=== PATIENT | female | born 1945 | race Caucasian/White ===

== ENCOUNTER 2017-03-23 10:00 | Inpatient (IN) | payer MEDICARE ==
[2017-03-23] VITALS (11 sets, daily range): BP systolic 143–222; BP diastolic 64–121; PULSE 69–91; RESP 20–22; TEMP 96.3–98.4; O2SAT 96–100
[~2017-03-23] VITALS: Ht 157.5 cm; Wt 96.9 kg
[2017-03-23 10:38] LABS: AUTOMATED NEUTROPHIL # 9.7 TH/MM3 (1.8-7.7); BASOPHIL # 0.1 TH/MM3 (0-0.2); BASOPHIL % 0.4 % (0.0-2.0); EOSINOPHIL # 0.1 TH/MM3 (0-0.4); EOSINOPHIL % 0.9 % (0.0-4.0); HEMATOCRIT 42.3 % (35.0-46.0); LYMPH % 17.7 % (9.0-44.0); LYMPHOCYTE # 2.2 TH/MM3 (1.0-4.8); MEAN CELL VOLUME 81.5 FL (80.0-100.0); MEAN CORPUSCULAR HEMOGLOBIN 27.1 PG (27.0-34.0); MEAN CORPUSCULAR HGB CONC 33.2 % (32.0-36.0); MONO % 3.6 % (0.0-8.0); NEUT % 77.4 % (16.0-70.0); PLATELET COUNT 322 TH/MM3 (150-450); RED BLOOD COUNT 5.19 MIL/MM3 (4.00-5.30); RED CELL DISTRIBUTION WIDTH 12.4 % (11.6-17.2); WHITE BLOOD COUNT 12.6 TH/MM3 (4.0-11.0)
[2017-03-23] MEDS ORDERED: ASPI81TA11 PO (10:41)
[2017-03-23] MEDS ORDERED: CHOL5000 PO (10:41)
[2017-03-23] MEDS ORDERED: LOSA100T PO (10:41)
[2017-03-23] MEDS ORDERED: MILN50 PO (10:41)
[2017-03-23] MEDS ORDERED: TRAM50TA PO (10:41)
[2017-03-23] MEDS ORDERED: BIOT1CAP2 PO (10:41)
[2017-03-23] MEDS ORDERED: META0.52 PO (10:41)
[2017-03-23] MEDS ORDERED: VENTAER INH (10:41)
[2017-03-23 10:44] LABS: HEMO FLAGS AUTO DIFF
[2017-03-23] MEDS ORDERED: MORPHINE SULFATE 4 MG/ML INJ IV PUSH ONE (10:45)
[2017-03-23] MEDS ORDERED: NITROGLYCERIN-D5W 50 MG/250 ML 250 ML IV ONE (10:45)
[2017-03-23 10:54] LABS: CHLORIDE 101 MEQ/L (98-107); POTASSIUM 3.9 MEQ/L (3.5-5.1); SODIUM (NA) 137 MEQ/L (136-145)
[2017-03-23 10:58] LABS: APTT (PATIENT) 31.8 SEC (24.3-30.1); INTERNATIONAL NORMALIZED RATIO 0.9 RATIO; PROTHROMBIN TIME - PATIENT 10.4 SEC (9.8-11.6)
[2017-03-23 10:59] LABS: ANION GAP 9 MEQ/L (5-15); BICARBONATE 26.7 MEQ/L (21.0-32.0); BLOOD UREA NITROGEN 17 MG/DL (7-18); MAGNESIUM 1.7 MG/DL (1.5-2.5)
[2017-03-23 11:02] LABS: ALT (GPT) 24 U/L (10-53); AST (GOT) 23 U/L (15-37); GLOMERULAR FILTRATION RATE 103 ML/MIN (>89)
[2017-03-23 11:04] LABS: TOTAL BILIRUBIN ADULT 0.4 MG/DL (0.2-1.0)
[2017-03-23 11:05] LABS: ALKALINE PHOSPHATASE 57 U/L (45-117)
[2017-03-23 11:15] LABS: CREATINE KINASE 55 U/L (26-192)
--- NOTE | 2017-03-23 11:19 | RADRPT ---
EXAM DATE/TIME: 03/23/2017 10:49 [facility] COMPARISON: No previous studies available for comparison. INDICATIONS : Chest pain. MEDICAL HISTORY : Hypertension. SURGICAL HISTORY : None. ENCOUNTER: Initial ACUITY: 1 day PAIN SCORE: 5/10 LOCATION: Bilateral chest FINDINGS: A single view of the chest demonstrates the lungs to be symmetrically aerated without evidence of mas s, infiltrate or effusion. The cardiomediastinal contours are unremarkable. Osseous structures are intact. CONCLUSION: 1. No acute cardiopulmonary disease. Trevor Shen MD on March 23, 2017 at 11:13 Board Certified Radiologist. This report was verified electronically.
[2017-03-23 11:26] LABS: PLATELET ESTIMATE SMEAR NORMAL (NORMAL); PLATELET MORPHOLOGY NORMAL (NORMAL); SCAN/DIFF AUTO DIFF CONFIRMED
--- NOTE | 2017-03-23 11:33 | PD ---
HPI Chief Complaint: Chest Pain Time Seen by Provider: 10:04 Travel History International Travel<30 days: No Contact w/Intl Traveler<30days: No Traveled to known affect area: No History of Present Illness HPI 71 yo F c/o chest pain, retrosternal, constant, 5/10, which woke her up at 3: 00am. Nausea reported. No dyspnea. No pleuritic component or radiation. No hx CAD. Pt quite smoking 11 years ago. Pt took baby aspirin within last 7 days. PFSH Past Medical History Hx Anticoagulant Therapy: Yes (baby asa) Atrial Fibrillation: Yes Heart Rhythm Problems: Yes Cardiovascular Problems: Yes (htn; afib) Diminished Hearing: No Fibromyalgia: Yes Hypertension: Yes Respiratory: Yes (asthma like symptoms) Immunizations Current: No Tetanus Vaccination: Unknown Influenza Vaccination: No ?: Not Past Surgical History Section: Yes Hysterectomy: Yes Tonsillectomy: Yes Other Surgery: Yes (skin ca removal) Social History Alcohol Use: Yes (rarely) Tobacco Use: No (former) Substance Use: No Allergies-Medications (Allergen,Severity, Reaction): Coded Allergies: Beta-Adrenergic Agents (Verified Allergy, Severe, 03/23/17) Calcium Channel Blocking Agents-Dih (Verified Allergy, Severe, 03/23/17) Macrolide Antibiotics (Verified Allergy, Severe, 03/23/17) Penicillins (Verified Allergy, Severe, 03/23/17) Sulfa (Sulfonamide Antibiotics) (Verified Allergy, Severe, 03/23/17) Tricyclic Compounds (Verified Allergy, Severe, 03/23/17) bupropion (Verified Allergy, Severe, 03/23/17) clonidine (Verified Allergy, Severe, 03/23/17) doxazosin (Verified Allergy, Severe, 03/23/17) gabapentin (Verified Allergy, Severe, 03/23/17) metoprolol (Verified Allergy, Severe, 03/23/17) pregabalin (Verified Allergy, Severe, 03/23/17) Uncoded Allergies: ketolides (Allergy, Severe, 03/23/17) Reported Meds & Prescriptions Reported Meds & Active Scripts Active Reported Tramadol (Tramadol HCl) 50 Mg Tab 50 Mg PO BID Savella (Milnacipran) 50 Mg Tab 50 Mg PO DAILY Vitamin D3 (Cholecalciferol) 5,000 Unit Cap 5,000 Units PO DAILY Losartan (Losartan Potassium) 100 Mg Tab 100 Mg PO DAILY Biotin 1 Mg Cap 1 Mg PO DAILY Metamucil (Psyllium) 520 Mg Cap 1 Tab PO DAILY Ventolin Hfa 18 GM Inh (Albuterol Sulfate) 90 Mcg/Act Aer 2 Puff INH Q4-6H PRN Aspirin EC (Aspirin) 81 Mg Tabdr 81 Mg PO DAILY Review of Systems Except as stated in HPI: all other systems reviewed are Neg General / Constitutional: No: Fever Cardiovascular: Positive: Chest Pain or Discomfort, No: Palpitations, Diaphoresis Respiratory: No: Shortness of Breath Physical Exam Narrative GENERAL: 71 yo F, NAD, WNWD SKIN: Warm and dry. HEAD: Atraumatic. Normocephalic. EYES: Pupils equal and round. No scleral icterus. No injection or drainage. ENT: No nasal bleeding or discharge. Mucous membranes pink and moist. NECK: Trachea midline. No JVD. CARDIOVASCULAR: Regular rate and rhythm. RESPIRATORY: No accessory muscle use. Clear to auscultation. Breath sounds equal bilaterally. GASTROINTESTINAL: Abdomen soft, non-tender, nondistended. Hepatic and splenic margins not palpable. MUSCULOSKELETAL: Extremities without clubbing, cyanosis, or edema. No obvious deformities. NEUROLOGICAL: Awake and alert. No obvious cranial nerve deficits. Motor grossly within normal limits. Five out of 5 muscle strength in the arms and legs. Normal speech. PSYCHIATRIC: Appropriate mood and affect; insight and judgment normal. Data Data Last Documented VS Vital Signs Date Time Temp Pulse Resp B/P (MAP) Pulse Ox O2 Delivery O2 Flow Rate FiO2 03/23/17 11:54 16 03/23/17 10:57 96 Room Air 03/23/17 10:56 89 03/23/17 10:45 98.3 VS reviewed 221/120 bp on arrival, decreased to 170/90 shortly after ED arrival Orders Orders Electrocardiogram (03/23/17 10:24) Ckmb (Isoenzyme) Profile (03/23/17 10:24) Complete Blood Count With Diff (03/23/17 10:24) Comprehensive Metabolic Panel (03/23/17 10:24) Magnesium (Mg) (03/23/17 10:24) Prothrombin Time / Inr (Pt) (03/23/17 10:24) Act Partial Throm Time (Ptt) (03/23/17 10:24) Troponin I (03/23/17 10:24) Lipase (03/23/17 10:24) Chest, Single Ap (03/23/17 10:24) Ecg Monitoring (03/23/17 10:24) Bilateral Bp Monitoring (03/23/17 10:24) Iv Access Insert/Monitor (03/23/17 10:24) Oximetry (03/23/17 10:24) Oxygen Administration (03/23/17 10:24) Morphine Inj (Morphine Inj) (03/23/17 10:45) Nitroglycerin-D5w 50 Mg/250 Ml (Nitrogly (03/23/17 10:45) Nitroglycerin Sl (Nitrostat Sl) (03/23/17 11:45) Admit Order (Ed Use Only) (03/23/17 11:53) Labs Laboratory Tests Test 03/23/17 10:12 White Blood Count 12.6 TH/MM3 Red Blood Count 5.19 MIL/MM3 Hemoglobin 14.1 GM/DL Hematocrit 42.3 % Mean Corpuscular Volume 81.5 FL Mean Corpuscular Hemoglobin 27.1 PG Mean Corpuscular Hemoglobin Concent 33.2 % Red Cell Distribution Width 12.4 % Platelet Count 322 TH/MM3 Mean Platelet Volume 8.5 FL Neutrophils (%) (Auto) 77.4 % Lymphocytes (%) (Auto) 17.7 % Monocytes (%) (Auto) 3.6 % Eosinophils (%) (Auto) 0.9 % Basophils (%) (Auto) 0.4 % Neutrophils # (Auto) 9.7 TH/MM3 Lymphocytes # (Auto) 2.2 TH/MM3 Monocytes # (Auto) 0.5 TH/MM3 Eosinophils # (Auto) 0.1 TH/MM3 Basophils # (Auto) 0.1 TH/MM3 CBC Comment AUTO DIFF Differential Comment AUTO DIFF CONFIRMED Platelet Estimate NORMAL Platelet Morphology Comment NORMAL Prothrombin Time 10.4 SEC Prothromb Time International Ratio 0.9 RATIO Activated Partial Thromboplast Time 31.8 SEC Blood Urea Nitrogen 17 MG/DL Creatinine 0.58 MG/DL Random Glucose 121 MG/DL Total Protein 8.6 GM/DL Albumin 3.5 GM/DL Calcium Level 10.0 MG/DL Magnesium Level 1.7 MG/DL Alkaline Phosphatase 57 U/L Aspartate Amino Transf (AST/SGOT) 23 U/L Alanine Aminotransferase (ALT/SGPT) 24 U/L Total Bilirubin 0.4 MG/DL Sodium Level 137 MEQ/L Potassium Level 3.9 MEQ/L Chloride Level 101 MEQ/L Carbon Dioxide Level 26.7 MEQ/L Anion Gap 9 MEQ/L Estimat Glomerular Filtration Rate 103 ML/MIN Total Creatine Kinase 55 U/L Troponin I LESS THAN 0.02 NG/ML Lipase 85 U/L MDM Medical Decision Making Medical Screen Exam Complete: Yes Emergency Medical Condition: Yes Differential Diagnosis NSTEMI, unstable angina, coronary vasospasm, PE, PTX, aortic dissection, pericarditis, myocarditis, endocarditis, PNA, esophageal disease, aneurysm, musculoskeletal etiologies, anxiety, cocaine/sympathomimetic abuse Narrative Course CBC & BMP Diagram 03/23/17 10:12 Total Protein 8.6 H, Albumin 3.5, Calcium Level 10.0, Magnesium Level 1.7, Alkaline Phosphatase 57, Aspartate Amino Transf (AST/SGOT) 23, Alanine Aminotransferase (ALT/SGPT) 24, Total Bilirubin 0.4 EKG: rate 90, L axis deviation, no ischemic injury pattern Tn < 0.02 Last 24 hours Impressions Chest X-Ray 03/23/17 1024 Signed Impressions: Service Date/Time: Thursday, March 23, 2017 10:49 - CONCLUSION: 1. No acute cardiopulmonary disease. Trevor Shen MD Pain improved after 0.5 mg SL nitro x 2. BP down toe 154/65 after SL nitro. Admission to center. D/w Dr Cohen for [facility]. Diagnosis Primary Impression: Chest pain Qualified Codes: R07.9 - Chest pain, unspecified Admitting Information Admitting Physician Requests: Observation Carlos Singletary MD Mar 23, 2017 11:32
[2017-03-23] MEDS: NITROGLYCERIN 0.4 MG SL 25 TABS/BTL SL SCH ×3 (11:49→12:14)
[2017-03-23] MEDS ORDERED: NALOXONE HCL 0.4 MG/ML AMP IV PUSH PRN (12:30)
[2017-03-23] MEDS ORDERED: SODIUM CHLORIDE 0.9% FLUSH 10 ML FLUSH IV FLUSH PRN (12:30)
[2017-03-23] MEDS ORDERED: DIATRIZOATE MEGLUM/DIATRIZOATE SOD 9 ML CUP ONE (12:57)
[2017-03-23] MEDS ORDERED: ACETAMINOPHEN 325 MG TAB PO PRN (13:00)
[2017-03-23] MEDS ORDERED: hydrALAZINE HCL 20 MG/ML VIAL IV PUSH ONE (13:00)
[2017-03-23 13:35] LABS: CREATINE KINASE 42 U/L (26-192)
--- NOTE | 2017-03-23 13:38 | HHI.HP ---
[facility] Service [facility] Primary Care Physician Geraldo Ramirez M.D. Admission Diagnosis Chest Pain; HTN Diagnoses: Chief Complaint: epigastric and chest pain Travel History International Travel<30 Days: No Contact w/Intl Traveler <30 Da: No Traveled to Known Affected Are: No History of Present Illness Patient is a very nice 71 female with AFIB (no MEds) and HTN who had acute onset at 4am of epigatric pressure. She ate a large meal ad a local [place] restaurant and finished her leftovers shortly before bed. She then awoke with severe pressure in the chest with associated Belching and flatus. She took a aurea mesfin and it got better but came back. She came to the ER and was found to have a BP of 221/121. HEr pain and BP imprved somewhat after SL nitro and the patient was recommend to the Hospital for further evaluation Review of Systems Constitutional: DENIES: Diaphoretic episodes, Fatigue, Fever, Weight gain, Weight loss, Chills, Dizziness, Change in appetite, Night Sweats Endocrine: DENIES: Abnorml menstrual pattern, Heat/cold intolerance, Polydipsia , Polyuria, Polyphagia Eyes: DENIES: Blurred vision, Diplopia, Eye inflammation, Eye pain, Vision loss , Photosensitivity, Double Vision Ears, nose, mouth, throat: DENIES: Tinnitus, Hearing loss, Vertigo, Nasal discharge, Oral lesions, Throat pain, Hoarseness, Ear Pain, Running Nose, Epistaxis, Sinus Pain, Toothache, Odynophagia Respiratory: DENIES: Apneas, Cough, Snoring, Wheezing, Hemoptysis, Sputum production, Shortness of breath Cardiovascular: COMPLAINS OF: Chest pain Gastrointestinal: COMPLAINS OF: Abdominal pain, DENIES: Black stools, Bloody stools, Constipation, Diarrhea, Nausea, Vomiting, Difficulty Swallowing, Anorexia Genitourinary: DENIES: Abnormal vaginal bleeding, Dysmenorrhea, Dyspareunia, Sexual dysfunction, Urinary frequency, Urinary incontinence, Urgency, Hematuria , Dysuria, Nocturia, Vaginal discharge Musculoskeletal: DENIES: Joint pain, Muscle aches, Stiffness, Joint Swelling, Back pain, Neck pain Integumentary: DENIES: Abnormal pigmentation, Pruritus, Rash, Nail changes, Breast masses, Breast skin changes, Nipple discharge Hematologic/lymphatic: DENIES: Bruising, Lymphadenopathy Immunologic/allergic: DENIES: Eczema, Urticaria Except as stated in HPI: all other systems reviewed are Neg Past Family Social History Past Medical History htn Fibromyalgia Afib Past Surgical History Rhina C/S Reported Medications as per EMR, new inhaler Allergies: Coded Allergies: Beta-Adrenergic Agents (Verified Allergy, Severe, 03/23/17) Calcium Channel Blocking Agents-Dih (Verified Allergy, Severe, 03/23/17) Macrolide Antibiotics (Verified Allergy, Severe, 03/23/17) Penicillins (Verified Allergy, Severe, 03/23/17) Sulfa (Sulfonamide Antibiotics) (Verified Allergy, Severe, 03/23/17) Tricyclic Compounds (Verified Allergy, Severe, 03/23/17) bupropion (Verified Allergy, Severe, 03/23/17) clonidine (Verified Allergy, Severe, 03/23/17) doxazosin (Verified Allergy, Severe, 03/23/17) gabapentin (Verified Allergy, Severe, 03/23/17) metoprolol (Verified Allergy, Severe, 03/23/17) pregabalin (Verified Allergy, Severe, 03/23/17) Uncoded Allergies: ketolides (Allergy, Severe, 03/23/17) Active Ordered Medications as per EMR Family History mom had alzheimers dad 79 of mi Social History no tobacco no etoh moved from [place] Physical Exam Vital Signs Vital Signs Date Time Temp Pulse Resp B/P (MAP) Pulse Ox O2 Delivery O2 Flow Rate FiO2 03/23/17 12:34 18 03/23/17 12:33 157/69 (98) 03/23/17 12:02 185/66 (105) 03/23/17 11:54 16 03/23/17 10:57 20 96 Room Air 03/23/17 10:57 96 Room Air 03/23/17 10:56 89 20 171/64 (99) 96 Room Air 197/72 (113) 03/23/17 10:48 91 22 98 Room Air 03/23/17 10:45 98.3 91 22 222/121 (154) 98 Physical Exam GENERAL: This is a well-nourished, well-developed patient, in no apparent distress. SKIN: No rashes, ecchymoses or lesions. Cool and dry. HEAD: Atraumatic. Normocephalic. No temporal or scalp tenderness. EYES: Pupils equal round and reactive. Extraocular motions intact. No scleral icterus. No injection or drainage. ENT: Nose without bleeding, purulent drainage or septal hematoma. Throat without erythema, tonsillar hypertrophy or exudate. Uvula midline. Airway patent. NECK: Trachea midline. No JVD or lymphadenopathy. Supple, nontender, no meningeal signs. CARDIOVASCULAR: Regular rate and rhythm without murmurs, gallops, or rubs. RESPIRATORY: Clear to auscultation. Breath sounds equal bilaterally. No wheezes , rales, or rhonchi. GASTROINTESTINAL: Abdomen soft, non-tender, nondistended. No hepato-splenomegaly , or palpable masses. No guarding. MUSCULOSKELETAL: Extremities without clubbing, cyanosis, or edema. No joint tenderness, effusion, or edema noted. No calf tenderness. Negative Homans sign bilaterally. NEUROLOGICAL: Awake and alert. Cranial nerves II through XII intact. Motor and sensory grossly within normal limits. Five out of 5 muscle strength in all muscle groups. Normal speech. Laboratory Laboratory Tests Test 03/23/17 10:12 03/23/17 13:08 White Blood Count 12.6 Red Blood Count 5.19 Hemoglobin 14.1 Hematocrit 42.3 Mean Corpuscular Volume 81.5 Mean Corpuscular Hemoglobin 27.1 Mean Corpuscular Hemoglobin Concent 33.2 Red Cell Distribution Width 12.4 Platelet Count 322 Mean Platelet Volume 8.5 Neutrophils (%) (Auto) 77.4 Lymphocytes (%) (Auto) 17.7 Monocytes (%) (Auto) 3.6 Eosinophils (%) (Auto) 0.9 Basophils (%) (Auto) 0.4 Neutrophils # (Auto) 9.7 Lymphocytes # (Auto) 2.2 Monocytes # (Auto) 0.5 Eosinophils # (Auto) 0.1 Basophils # (Auto) 0.1 CBC Comment AUTO DIFF Differential Comment AUTO DIFF CONFIRMED Platelet Estimate NORMAL Platelet Morphology Comment NORMAL Prothrombin Time 10.4 Prothromb Time International Ratio 0.9 Activated Partial Thromboplast Time 31.8 Blood Urea Nitrogen 17 Creatinine 0.58 Random Glucose 121 Total Protein 8.6 Albumin 3.5 Calcium Level 10.0 Magnesium Level 1.7 Alkaline Phosphatase 57 Aspartate Amino Transf (AST/SGOT) 23 Alanine Aminotransferase (ALT/SGPT) 24 Total Bilirubin 0.4 Sodium Level 137 Potassium Level 3.9 Chloride Level 101 Carbon Dioxide Level 26.7 Anion Gap 9 Estimat Glomerular Filtration Rate 103 Total Creatine Kinase 55 Troponin I LESS THAN 0.02 Lipase 85 Result Diagram: 03/23/17 1012 03/23/17 1012 Imaging Last Impressions Chest X-Ray 03/23/17 1024 Signed Impressions: Service Date/Time: Thursday, March 23, 2017 10:49 - CONCLUSION: 1. No acute cardiopulmonary disease. MD Blair Bardales VTE Risk Assessment Blair VTE Risk Assessment: No/Low Risk (score <= 1) Caprini Risk Assessment Model Point Value = 1 Point Value = 2 Point Value = 3 Point Value = 5 Age 41-60 Minor surgery BMI > 25 kg/m2 Swollen legs Varicose veins or History of unexplained or recurrent spontaneous Oral contraceptives or hormone replacement Sepsis (< 1 month) Serious lung disease, including pneumonia (< 1 month) Abnormal pulmonary function Acute myocardial infarction Congestive heart failure (< 1 month) History of inflammatory bowel disease Medical patient at bed rest Age 61-74 Arthroscopic surgery Major open surgery (> 45 min) Laparoscopic surgery (> 45 min) Malignancy Confined to bed (> 72 hours) Immobilizing plaster cast Central venous access Age >= 75 History of VTE Family history of VTE Factor V Leiden Prothrombin [id number] Lupus anticoagulant Anticardiolipin antibodies Elevated serum homocysteine Heparin-induced thrombocytopenia Other congenital or acquired thrombophilia Stroke (< 1 month) Elective arthroplasty Hip, pelvis, or leg fracture Acute spinal cord injury (< 1 month) Prophylaxis Regimen Total Risk Factor Score Risk Level Prophylaxis Regimen 0-1 Low Early ambulation 2 Moderate Order ONE of the following: *Sequential Compression Device (SCD) *Heparin 5000 units SQ BID 3-4 Higher Order ONE of the following medications: *Heparin 5000 units SQ TID *Enoxaparin/Lovenox 40 mg SQ daily (WT < 150 kg, CrCl > 30 mL/min) *Enoxaparin/Lovenox 30 mg SQ daily (WT < 150 kg, CrCl > 10-29 mL/min) *Enoxaparin/Lovenox 30 mg SQ BID (WT < 150 kg, CrCl > 30 mL/min) AND/OR *Sequential Compression Device (SCD) 5 or more Highest Order ONE of the following medications: *Heparin 5000 units SQ TID (Preferred with Epidurals) *Enoxaparin/Lovenox 40 mg SQ daily (WT < 150 kg, CrCl > 30 mL/min) *Enoxaparin/Lovenox 30 mg SQ daily (WT < 150 kg, CrCl > 10-29 mL/min) *Enoxaparin/Lovenox 30 mg SQ BID (WT < 150 kg, CrCl > 30 mL/min) AND *Sequential Compression Device (SCD) Assessment and Plan Problem List: (1) Hypertensive urgency ICD Code: I16.0 - Hypertensive urgency Plan: ptn on arb at home add Hydralazine IV (2) Afib ICD Code: I48.91 - Unspecified atrial fibrillation Plan: no meds per patient, follow on telem cont aspirin (3) Chest pain ICD Code: R07.9 - Chest pain, unspecified Status: Acute Plan: atypical, ct abd/pelv pending R/O Gi causes as the onset was shortly after heavy BBQ meal ST in am cardiac enzymes and BP control medical MGgt (asa, nitro, O2, etc.) On my review ekg is sinus without changes consistent with ischemia (4) Fibromyalgia ICD Code: M79.7 - Fibromyalgia Plan: savella, tramadol Code Status full Discussed Condition With er md, patient Problem Qualifiers (1) Chest pain: Qualified Codes: R07.9 - Chest pain, unspecified Lisette Cohen MD Mar 23, 2017 13:38
[2017-03-23] MEDS ORDERED: IOHEXOL 350 MG/ML 10 ML VIAL (for RAD DIAG) IVCONTRAST ONE (14:03)
--- NOTE | 2017-03-23 14:18 | RADRPT ---
EXAM DATE/TIME: 03/23/2017 13:56 [facility] COMPARISON: No previous studies available for comparison. INDICATIONS : Upper abdominal pain. IV CONTRAST: 90 cc Omnipaque 350 (iohexol) IV ORAL CONTRAST: Prescribed oral contrast ingested. RADIATION DOSE: 22.10 CTDIvol (mGy) MEDICAL HISTORY : Hypertension. Skin cancer SURGICAL HISTORY : Hysterectomy. section. ENCOUNTER: Initial ACUITY: 1 day PAIN SCALE: 5/10 LOCATION: upper quadrant TECHNIQUE: Volumetric scanning of the abdomen and pelvis was performed. Using automated exposure control and ad justment of the mA and/or kV according to patient size, radiation dose was kept as low as reasonably achievable to obtain optimal diagnostic quality images. DICOM format image data is available electro nically for review and comparison. FINDINGS: The limited portion lung base visualized clear. The appearance of the liver, spleen, pancreas and adrenal glands is within normal limits. Right kidney: There is moderate hydronephrosis. There is a 1.1 cm stone within the collecting system. In addition, there is a 1.0 CM by 0.6 CM stone in the proximal right ureter. The more distal portions of right ure ter are unremarkable in appearance. Left kidney: The examination demonstrates a 2 mm nonobstructing stone in the lower pole collecting system. The lef t ureter is unremarkable throughout its course. The abdominal aorta is normal in caliber. There is no significant retroperitoneal adenopathy. The vis ualized loops of small large bowel are unremarkable. No free air or free fluid is seen. There is no f ree fluid within the pelvis. No iliac or inguinal adenopathy is present. There are degenerative changes throughout the lumbar spine. CONCLUSION: 1. There is a 6 mm x 1 cm stone in the proximal right ureter with moderate postobstructive changes in the right kidney. In addition, there is a 1.1 cm stone within the right collecting system as well. 2. 2 mm nonobstructing stone in the left kidney. Carlos Wen MD on March 23, 2017 at 14:07 Board Certified Radiologist. This report was verified electronically.
[2017-03-23] MEDS ORDERED: DIATRIZOATE MEGLUM/DIATRIZOATE SOD 9 ML CUP PO ONE (15:00)
[2017-03-23] MEDS: MORPHINE SULFATE 4 MG/ML INJ IV PUSH PRN ×2 (16:32→21:23)
--- NOTE | 2017-03-23 17:24 | RADRPT ---
EXAM DATE/TIME: 03/23/2017 15:53 [facility] COMPARISON: No previous studies available for comparison. INDICATIONS : Obstruction. MEDICAL HISTORY : Hypertension. A-fib. Fibromyalgia. Skin cancer. SURGICAL HISTORY : Tonsillectomy. Hysterectomy. section. Skin cancer removal. ENCOUNTER: Initial ACUITY: 1 day PAIN SCORE: 0/10 LOCATION: Bilateral flank MEASUREMENTS: RIGHT KIDNEY: 11.4 x 6.0 x 6.2 cm LEFT KIDNEY: 11.4 x 6.4 x 6.3 cm FINDINGS: RIGHT KIDNEY: There is moderate hydronephrosis. The exam demonstrates 2 stones. The first measures 1.4 x 1.0 x 1.6 CM. The second measures 1.4 x 0.6 x 1.1 CM. No solid masses identified. LEFT KIDNEY: Renal cortex is normal in thickness and echotexture. No hydronephrosis, stone, or mass. BLADDER: Within normal limits given the degree of distension. CONCLUSION: 1. There are 2 renal stones on the right as described above. There is moderate hydronephrosis of the collecting system. Carlos Wen MD on March 23, 2017 at 17:21 Board Certified Radiologist. This report was verified electronically.
[2017-03-23 19:52] LABS: CREATINE KINASE 34 U/L (26-192)
[2017-03-23] MEDS: SODIUM CHLORIDE 0.9% FLUSH 10 ML FLUSH IV FLUSH SCH (21:24)
[2017-03-23] MEDS: NITROGLYCERIN 0.4 MG SL 25 TABS/BTL SL PRN (22:45)
[2017-03-24] VITALS (10 sets, daily range): BP systolic 161–219; BP diastolic 55–82; PULSE 75–101; RESP 18–20; TEMP 96.3–99.1; O2SAT 93–100
[2017-03-24 00:20] LABS: GLUCOSE,URINE NEG (NEG); KETONE, URINE NEG (NEG); NITRITE,URINE NEG (NEG)
[2017-03-24 00:32] LABS: BLOOD, URINE TRACE (NEG)
[2017-03-24 00:41] LABS: URINE COLOR YELLOW (YELLW/STRAW)
[2017-03-24 00:42] LABS: RBC, URINE 0-3 /hpf (0-3); SQUAMOUS EPITHELIAL CELL URINE 0-5 /hpf (0-5)
[2017-03-24 00:43] LABS: COMMENT (UR) CULTURE INDICATED; CULTURE IF INDICATED CULTURE INDICATED; MUCUS URINE RARE /lpf (OCC)
[2017-03-24] MEDS ORDERED: hydrALAZINE HCL 20 MG/ML VIAL IV PUSH ONE (01:15)
[2017-03-24] MEDS: MORPHINE SULFATE 4 MG/ML INJ IV PUSH PRN ×2 (03:04→06:22)
[2017-03-24] MEDS ORDERED: ONDANSETRON HCL 4 MG/2 ML VIAL IV PUSH PRN (06:30)
[2017-03-24 06:45] LABS: AUTOMATED NEUTROPHIL # 11.6 TH/MM3 (1.8-7.7); BASOPHIL # 0.1 TH/MM3 (0-0.2); BASOPHIL % 0.9 % (0.0-2.0); EOSINOPHIL # 0.1 TH/MM3 (0-0.4); EOSINOPHIL % 0.4 % (0.0-4.0); HEMATOCRIT 38.7 % (35.0-46.0); HEMO FLAGS DIFF FINAL; LYMPH % 13.4 % (9.0-44.0); LYMPHOCYTE # 1.9 TH/MM3 (1.0-4.8); MEAN CELL VOLUME 82.5 FL (80.0-100.0); MEAN CORPUSCULAR HEMOGLOBIN 27.8 PG (27.0-34.0); MEAN CORPUSCULAR HGB CONC 33.7 % (32.0-36.0); MONO % 3.5 % (0.0-8.0); NEUT % 81.8 % (16.0-70.0); PLATELET COUNT 306 TH/MM3 (150-450); RED BLOOD COUNT 4.68 MIL/MM3 (4.00-5.30); RED CELL DISTRIBUTION WIDTH 12.6 % (11.6-17.2); WHITE BLOOD COUNT 14.2 TH/MM3 (4.0-11.0)
[2017-03-24 07:03] LABS: BICARBONATE 26.9 MEQ/L (21.0-32.0)
[2017-03-24] MEDS ORDERED: hydrALAZINE HCL 50 MG TAB PO SCH (09:45)
[2017-03-24] MEDS: LOSARTAN 50 MG TAB PO SCH (10:10)
[2017-03-24] MEDS: traMADol HCL 50 MG TAB PO SCH ×2 (10:11→20:31)
[2017-03-24] MEDS: SODIUM CHLORIDE 0.9% FLUSH 10 ML FLUSH IV FLUSH SCH ×2 (10:12→20:31)
[2017-03-24] MEDS ORDERED: ACETAMINOPHEN 500 MG CPLT PO PRN (10:45)
[2017-03-24] MEDS ORDERED: MILNACIPRAN 50 MG PO SCH (11:15)
[2017-03-24] MEDS: NITROGLYCERIN 0.4 MG SL 25 TABS/BTL SL PRN ×2 (11:19→11:28)
[2017-03-24] MEDS ORDERED: REGADENOSON INJ 0.4 MG/5 ML SYR IV ONE (11:55)
--- NOTE | 2017-03-24 12:02 | EKG ---
Date Performed: 03/23/2017 Time Performed: 10:08:26 PTAGE: 71 years EKG: Sinus rhythm MARKED LEFT AXIS DEVIATION MINIMAL VOLTAGE CRITERIA FOR LVH, CONSIDER NORMAL VARIANT ABNORMAL ECG NO PREVIOUS TRACING DOCTOR: Bao Krishnan Interpretating Date/Time 03/24/2017 12:01:17
--- NOTE | 2017-03-24 12:11 | EKG ---
Date Performed: 03/23/2017 Time Performed: 18:19:08 PTAGE: 71 years EKG: Sinus rhythm BORDERLINE LEFT AXIS DEVIATION BORDERLINE ECG Compared to prior tracing no significant change PREVIOUS TRACING : 03/23/2017 12.36 DOCTOR: Bao Krishnan Interpretating Date/Time 03/24/2017 12:09:23
--- NOTE | 2017-03-24 12:26 | HHI.PR ---
Subjective Remarks Patient seen and evaluated today in follow-up for atypical chest discomfort. Stress test pending this morning. Patient's blood pressure has been quite elevated requiring IV blood pressure medications. Patient is quite anxious. I did see a bulk of her readings over the last several weeks in the year old white elevated notes on the nausea and vomiting but she does have some further chest discomfort. Patient did see her CT which did show some perhaps incidental finding of moderate sized kidney stones and hydronephrosis. Not sure that this has any bearing on her current chest pain. Patient had no symptoms of dysuria, flank pain, no fever and knew nothing about any kidney stones in the past. Objective Vitals Vital Signs Date Time Temp Pulse Resp B/P (MAP) Pulse Ox O2 Delivery O2 Flow Rate FiO2 03/24/17 11:17 80 18 175/59 (97) 100 03/24/17 08:00 97.8 93 18 193/66 (108) 98 03/24/17 04:00 96.3 83 20 189/65 (106) 100 03/24/17 03:31 179/69 (105) 03/24/17 03:23 Nasal Cannula 2.00 03/24/17 00:00 96.5 75 20 219/78 (125) 99 03/24/17 00:00 180/82 (114) 03/23/17 23:41 84 03/23/17 21:40 99 Nasal Cannula 2.00 03/23/17 20:00 96.3 76 20 208/72 (117) 100 03/23/17 16:00 97.0 69 20 143/68 (93) 98 03/23/17 15:55 03/23/17 13:33 99 Nasal Cannula 2.00 03/23/17 12:34 18 03/23/17 12:33 157/69 (98) I/O 03/23/17 03/23/17 03/23/17 03/24/17 03/24/17 03/24/17 07:00 15:00 23:00 07:00 15:00 23:00 Intake Total 600 ml 0 ml Balance 600 ml 0 ml Intake Oral 600 ml 0 ml # Voids 3 4 # Bowel Movements 0 Result Diagram: 03/24/17 0607 03/24/17 0607 Imaging Last Impressions Chest X-Ray 03/23/17 1024 Signed Impressions: Service Date/Time: Thursday, March 23, 2017 10:49 - CONCLUSION: 1. No acute cardiopulmonary disease. Trevor Shen MD Renal Ultrasound 03/23/17 0000 Signed Impressions: Service Date/Time: Thursday, March 23, 2017 15:53 - CONCLUSION: 1. There are 2 renal stones on the right as described above. There is moderate hydronephrosis of the collecting system. Carlos Wen MD Abdomen/Pelvis CT 03/23/17 0000 Signed Impressions: Service Date/Time: Thursday, March 23, 2017 13:56 - CONCLUSION: 1. There is a 6 mm x 1 cm stone in the proximal right ureter with moderate postobstructive changes in the right kidney. In addition, there is a 1.1 cm stone within the right collecting system as well. 2. 2 mm nonobstructing stone in the left kidney. Carlos Wen MD Objective Remarks GENERAL: This is a well-nourished, well-developed patient,anxious CARDIOVASCULAR: Regular rate and rhythm without murmurs, gallops, or rubs. RESPIRATORY: Clear to auscultation. Breath sounds equal bilaterally. No wheezes , rales, or rhonchi. GASTROINTESTINAL: Abdomen soft, non-tender, nondistended. Normal active bowel sounds MUSCULOSKELETAL: no flank pain Extremities without clubbing, cyanosis, or edema. NEURO: Alert & Oriented x4 to person, place, time, situation. Moves all ext x4 A/P Problem List: (1) Hypertensive urgency ICD Code: I16.0 - Hypertensive urgency Plan: ptn on arb at home, patient with multiple drug allergies add Hydralazine by mouth (2) Afib ICD Code: I48.91 - Unspecified atrial fibrillation Plan: Currently in sinus rhythm on telemetry no meds per patient, follow on telem cont aspirin (3) Chest pain ICD Code: R07.9 - Chest pain, unspecified Status: Acute Plan: atypical, and likely GI versus related to elevated blood pressure as the onset was shortly after heavy BBQ meal ST pending cardiac enzymes and BP control medical MGgt (asa, nitro, O2, etc.) On my review ekg is sinus without changes consistent with ischemia (4) Fibromyalgia ICD Code: M79.7 - Fibromyalgia Plan: savella, tramadol (5) Renal stone ICD Code: N20.0 - Calculus of kidney Plan: patient with right sided moderate hydronephrosis, as per review of systems this is been asymptomatic although this may be referred pain the stones are over 1/2 inch unlikely to pass on their own we will consult urology for further evaluation Discharge Planning The patient's blood pressure requiring IV antihypertensive she'll need to be admitted to the hospital for further treatment Problem Qualifiers (1) Chest pain: Qualified Codes: R07.9 - Chest pain, unspecified Lisette Cohen MD Mar 24, 2017 12:26
--- NOTE | 2017-03-24 12:47 | RADRPT ---
EXAM DATE/TIME: 03/24/2017 08:57 [facility] COMPARISON: No previous studies available for comparison. INDICATIONS : Mid chest pain for one day. Angina. Atrial fibrillation. DOSE: 25.5 mCi Tc99m Myoview at stress. 8.7 mCi Tc99m Myoview at rest. 0.4 mg Lexiscan STRESS SYMPTOMS: Heart racing. EJECTION FRACTION: 62% MEDICAL HISTORY : Hypertension. SURGICAL HISTORY : section. Tonsillectomy. Hysterectomy. ENCOUNTER: Initial ACUITY: 1 day PAIN SCALE: 5/10 LOCATION: Midsternal chest TECHNIQUE: The patient underwent pharmacologic stress with infusion of prescribed dose. Continuous ECG tracing was monitored during stress. Gated SPECT imaging was performed after stress and conventional SPECT i maging was performed at rest. The examination was performed on a SPECT/CT scanner, both attenuation and non-corrected datasets were reviewed. FINDINGS: DISTRIBUTION: The maximum perfused segment at stress is in the lateral wall. PERFUSION STUDY: The pattern of perfusion at stress is within normal limits. GATED STUDY: There is intact wall motion and thickening without hypokinetic or dyskinetic segments. CONCLUSION: Normal examination. RISK CATEGORY: Low (<1% Annual Mortality Rate) Mychal Robbins MD on March 24, 2017 at 12:38 Board Certified Radiologist. This report was verified electronically.
--- NOTE | 2017-03-24 13:45 | EKG ---
Date Performed: 03/23/2017 Time Performed: 12:36:44 PTAGE: 71 years EKG: Sinus rhythm MARKED LEFT AXIS DEVIATION ABNORMAL ECG PREVIOUS TRACING 03/23/17 Voltage criteria for left ventricular hypertrophy not present compar ed to the prior tracing. DOCTOR: Bao Krishnan Interpretating Date/Time 03/24/2017 13:52:48
[2017-03-24] MEDS: MILNACIPRAN 50 MG PO SCH (14:42)
[2017-03-24] MEDS: hydrALAZINE HCL 50 MG TAB PO SCH (17:26)
--- NOTE | 2017-03-24 18:50 | MB ---
cc: EZRA COMER MD DATE OF CONSULTATION 03/24/2017. REASON FOR CONSULTATION Right renal calculi. HISTORY OF PRESENT ILLNESS This is a pleasant 71-year-old female with history of atrial fibrillation who presented to the ER yesterday with acute onset of epigastric pain around 4:00 a.m. She went to the ER where she was found to have elevated blood pressure of 220/120. Her blood pressure improved after she was given a sublingual nitro and the patient was subsequently admitted for further evaluation. During workup, the patient had a CT of abdomen and pelvis without contrast performed which showed two separate 1 cm stones in the right side of the urinary tract, one at the UPJ causing mild hydronephrosis and one within her kidney itself. Urology was consulted for this finding. Currently she denies any flank pain, fevers, chills, dysuria, or hematuria. She denies any previous history of kidney stones. She does occasionally get urinary tract infections. She has chronic back pain which she attributes to her fibromyalgia. Currently, she is sitting up in a chair resting quite comfortably without any significant pain issues. REVIEW OF SYSTEMS See HPI. All other systems reviewed are otherwise negative. PAST MEDICAL HISTORY 1. Hypertension, 2. Fibromyalgia 3. Atrial fibrillation PAST SURGICAL HISTORY 1. 2. Total abdominal hysterectomy. ALLERGIES CLONIDINE DOXAZOSIN METOPROLOL PENICILLIN MACROLIDE SULFA TRICYCLIC FAMILY HISTORY Mom had Alzheimer's, denies urolithiasis. SOCIAL HISTORY No tobacco, alcohol or illicit drugs. She moved from [place]. MEDICATIONS 1. Hydralazine 50 mg p.o. q.8 h 2. Losartan 100 mg p.o. daily. 3. Tramadol 50 mg p.o. b.i.d. PHYSICAL EXAMINATION VITAL SIGNS: Temperature 97.7, pulse 83, respiratory rate 19, BP 184/55, satting 96% on room air. GENERAL: She is alert and oriented x3. No apparent distress, pleasant cooperative lady who appears her stated age. HEENT: Head - Normocephalic, atraumatic. Eyes - No scleral icterus. Extraocular movements are intact. NECK: Supple. Trachea is midline. No JVD. SKIN: No ulcers or rashes. Mucous membranes pink and moist. LUNGS: Clear to auscultation bilaterally. No wheezes, rales or rhonchi. HEART: Irregularly irregular. No murmurs, gallops, rubs. ABDOMEN: Soft, nontender, nondistended. Positive bowel sounds. GENITOURINARY:: She has no CVA tenderness bilaterally. PELVIC: Exam not indicated at this time. EXTREMITIES: Nontender. No clubbing, cyanosis, edema. PSYCHIATRIC: Normal affect. NEUROLOGIC: Cranial nerves II-XII intact. Strength 5/5 all four extremities. LABORATORY DATA Sodium 134, potassium 4.0, chloride 100, bicarb 26.9, BUN 12, creatinine 0.42. White count 14.2, hemoglobin 13.0, hematocrit 38.7, platelet count 306. Her urine showed trace blood, trace leukocyte esterase. Urine culture currently pending. IMAGING STUDIES CT abdomen and pelvis without contrast reviewed. Per radiologist's report, the patient has a 1 cm right UPJ stone with mild hydronephrosis as well as a 1 cm lower pole stone and a 2 mm non-obstructing stone in her left kidney. PLAN The patient is a 71-year-old female who was admitted with epigastric pain and was found to have right-sided ureteral calculi. PLAN The patient is asymptomatic with normal renal function and white blood cell count. There is not any septic picture. Recommend conservative management and to follow up as an outpatient for definitive treatment of her stones. Thank you for this consult. Please call with any questions. MD PANCHO Garcia/ /5:57 PM /6:28 PM
[2017-03-25] VITALS: BP 154/54; PULSE 87; RESP 18; TEMP 97.9; O2SAT 98
[2017-03-25] MEDS: hydrALAZINE HCL 50 MG TAB PO SCH (01:21)
[2017-03-25 04:00] VITALS: BP 148/64; PULSE 87; RESP 20; TEMP 97.3; O2SAT 98
[2017-03-25] MEDS ORDERED: HYDR-3800 PO (07:43)
[2017-03-25 08:00] VITALS: BP 133/57; PULSE 78; RESP 18; TEMP 96.8; O2SAT 97
--- NOTE | 2017-03-25 08:39 | RADRPT ---
EXAM DATE/TIME: 03/25/2017 08:13 [facility] COMPARISON: CT ABDOMEN & PELVIS W CONTRAST, March 23, 2017, 13:56. INDICATIONS : Bilateral lower abdomen tenderness. MEDICAL HISTORY : Hypertension. SURGICAL HISTORY : Hysterectomy. section. ENCOUNTER: Subsequent ACUITY: 3 days PAIN SCORE: 2/10 LOCATION: Bilateral lower quadrant abdomen FINDINGS: No dilated loops of bowel are noted. There is contrast in the rectosigmoid colon from prior CT examin ation. No significant free air or free fluid. Previously noted calcified calculi in the right proxima l ureter and superior pole calyx are again demonstrated. Osseous structures are intact. CONCLUSION: 1. Nonobstructive bowel gas pattern. 2. Redemonstration of calcified calculi in the right superior pole calyx and proximal ureter. Trevor Shen MD on March 25, 2017 at 8:35 Board Certified Radiologist. This report was verified electronically.
[2017-03-25] MEDS: traMADol HCL 50 MG TAB PO SCH (09:58)
[2017-03-25] MEDS: LOSARTAN 50 MG TAB PO SCH (09:58)
--- NOTE | 2017-03-25 10:01 | HHI.PR ---
Subjective Remarks Patient was transferred to my service ([facility] hospitalist) this morning from the [facility] chest pain admitting service. She was admitted to the chest pain clinic on after having upper epigastric pressure. She had eaten a large meal at a [employer] restaurant. She then later developed some pressure in her chest with associated belching and flatus. She also had elevated blood pressure on admission. She was given IV Hydralazine and then transitioned to oral Hydralazine and her BP has come down. She had a normal serial enzymes and EKG's and then underwent a nuclear stress test on 03-24-17 that was negative for ischemia. She had a CT scan of the abdomen that showed two separate stones in the right side of the urinary tract and one was at the UPJ causing mild hydronephrosis. Dr Foley was consulted by Dr Jamel Cohen and saw her later yesterday evening. She denied having any flank pain, fever, chills, dysuria, hematuria and had no history of previous kidney stones. She does have chronic back pain which she attributes to fibromyalgia. She had a normal renal function and no infection so Dr Foley recommended conservative management for now and stated she could be discharged and followup with him as an outpatient for definitive treatment of her stones. Since he saw her later last evening the discharge was not done and I was called this morning to assume care. She has no complaints today and has no further indigestion and no chest pressure. She has no current abdominal or flank pain. No nausea or vomiting and would like to go home. Objective Vitals Vital Signs Date Time Temp Pulse Resp B/P (MAP) Pulse Ox O2 Delivery O2 Flow Rate FiO2 03/25/17 08:00 96.8 78 18 133/57 (82) 97 03/25/17 04:00 97.3 87 20 148/64 (92) 98 03/25/17 00:00 97.9 87 18 154/54 (87) 98 03/24/17 21:37 20 03/24/17 21:12 95 21 03/24/17 20:00 101 03/24/17 20:00 99.1 93 18 161/69 (99) 96 03/24/17 18:05 95 Room Air 03/24/17 16:00 97.7 83 19 184/55 (98) 96 03/24/17 13:20 99 21 03/24/17 12:00 97.7 90 19 171/68 (102) 93 03/24/17 11:24 18 03/24/17 11:17 80 18 175/59 (97) 100 Result Diagram: 03/24/17 0607 03/24/17 0607 Other Results Laboratory Tests Test 03/23/17 10:12 03/23/17 18:40 03/23/17 23:27 03/24/17 06:07 Platelet Estimate NORMAL Platelet Morphology Comment NORMAL Prothrombin Time 10.4 SEC Prothromb Time International Ratio 0.9 RATIO Activated Partial Thromboplast Time 31.8 SEC Blood Urea Nitrogen 17 MG/DL 12 MG/DL Creatinine 0.58 MG/DL 0.42 MG/DL Random Glucose 121 MG/DL 123 MG/DL Total Protein 8.6 GM/DL Albumin 3.5 GM/DL Calcium Level 10.0 MG/DL 9.2 MG/DL Magnesium Level 1.7 MG/DL Alkaline Phosphatase 57 U/L Aspartate Amino Transf (AST/SGOT) 23 U/L Alanine Aminotransferase (ALT/SGPT) 24 U/L Total Bilirubin 0.4 MG/DL Sodium Level 137 MEQ/L 134 MEQ/L Potassium Level 3.9 MEQ/L 4.0 MEQ/L Chloride Level 101 MEQ/L 100 MEQ/L Carbon Dioxide Level 26.7 MEQ/L 26.9 MEQ/L Lipase 85 U/L Total Creatine Kinase 34 U/L Troponin I LESS THAN 0.02 NG/ML Urine Color YELLOW Urine Turbidity CLEAR Urine pH 6.0 Urine Specific [place] 1.031 Urine Protein NEG mg/dL Urine Glucose (UA) NEG mg/dL Urine Ketones NEG mg/dL Urine Occult Blood TRACE Urine Nitrite NEG Urine Bilirubin NEG Urine Leukocyte Esterase TRACE Urine RBC 0-3 /hpf Urine WBC 3-5 /hpf Urine WBC Clumps RARE Urine Squamous Epithelial Cells 0-5 /hpf Urine Mucus RARE /lpf Microscopic Urinalysis Comment CULTURE INDICATED White Blood Count 14.2 TH/MM3 Red Blood Count 4.68 MIL/MM3 Hemoglobin 13.0 GM/DL Hematocrit 38.7 % Mean Corpuscular Volume 82.5 FL Mean Corpuscular Hemoglobin 27.8 PG Mean Corpuscular Hemoglobin Concent 33.7 % Red Cell Distribution Width 12.6 % Platelet Count 306 TH/MM3 Mean Platelet Volume 8.6 FL Neutrophils (%) (Auto) 81.8 % Lymphocytes (%) (Auto) 13.4 % Monocytes (%) (Auto) 3.5 % Eosinophils (%) (Auto) 0.4 % Basophils (%) (Auto) 0.9 % Neutrophils # (Auto) 11.6 TH/MM3 Lymphocytes # (Auto) 1.9 TH/MM3 Monocytes # (Auto) 0.5 TH/MM3 Eosinophils # (Auto) 0.1 TH/MM3 Basophils # (Auto) 0.1 TH/MM3 CBC Comment DIFF FINAL Differential Comment Anion Gap 7 MEQ/L Estimat Glomerular Filtration Rate 149 ML/MIN Imaging Last Impressions Abdomen X-Ray 03/25/17 0000 Signed Impressions: Service Date/Time: Saturday, March 25, 2017 08:13 - CONCLUSION: 1. Nonobstructive bowel gas pattern. 2. Redemonstration of calcified calculi in the right superior pole calyx and proximal ureter. Trevor Shen MD Myocardial Perfusion Scan Nuc Med 03/24/17 0600 Signed Impressions: Service Date/Time: Friday, March 24, 2017 08:57 - CONCLUSION: Normal examination. RISK CATEGORY: Low (<1%% Annual Mortality Rate) Mychal Robbins MD Chest X-Ray 03/23/17 1024 Signed Impressions: Service Date/Time: Thursday, March 23, 2017 10:49 - CONCLUSION: 1. No acute cardiopulmonary disease. Trevor Shen MD Renal Ultrasound 03/23/17 0000 Signed Impressions: Service Date/Time: Thursday, March 23, 2017 15:53 - CONCLUSION: 1. There are 2 renal stones on the right as described above. There is moderate hydronephrosis of the collecting system. Carlos Wen MD Abdomen/Pelvis CT 03/23/17 0000 Signed Impressions: Service Date/Time: Thursday, March 23, 2017 13:56 - CONCLUSION: 1. There is a 6 mm x 1 cm stone in the proximal right ureter with moderate postobstructive changes in the right kidney. In addition, there is a 1.1 cm stone within the right collecting system as well. 2. 2 mm nonobstructing stone in the left kidney. Carlos Wen MD Objective Remarks Exam: Pleasant white female in no distress. HEENT: Pupils equal, no scleral icterus, mouth negative Neck: No JVD Heart: RRR with no murmur Lungs: Clear Abdomen: Soft, nontender Extremities: No edema Neuro: Alert, oriented. A/P Assessment and Plan Assessment: --Atypical chest pain--resolve--noncardiac with negative nuclear stress test --Hypertensive urgency on admission-- blood pressure now better controlled with the addition of Hydralazine to take along with her Losartan --Prior history of atrial fibrillation--in sinus rhythm currently--on aspirin --Fibromyalgia --Renal calculi in right kidney and right ureter--seen by urology and cleared for outpatient definitive management--she is currently asymptomatic Plan: Discharge today. She will be continue home medications. A new script for Hydralazine 50mg three times a day was written. She will followup with her PCP within one week to recheck her blood pressure. She will followup with urology (Dr Foley) for more definitive management of her renal calculi. Nemesio Hay MD Mar 25, 2017 10:01
[2017-03-25] MEDS: MILNACIPRAN 50 MG PO SCH (10:40)
--- NOTE | 2017-03-25 15:42 | EKG ---
Date Performed: 03/24/2017 Time Performed: 11:26:48 PTAGE: 71 years EKG: Sinus rhythm MARKED LEFT AXIS DEVIATION MINIMAL VOLTAGE CRITERIA FOR LVH, CONSIDER NORMAL VARIANT ABNORMAL ECG PREVIOUS TRACING : 03/23/2017 18.19 Compared to prior tracing no significant change DOCTOR: Yary Mcarthur Interpretating Date/Time 03/25/2017 15:40:40
== END 2017-03-25 10:54 | disposition home or self-care (01) | DRG 305 ==
LOC: PHED 10:00 → PHEDA 11:54 → PH3B 15:26 → OBSVTOIN 03-24 12:25
PROVIDERS: ADMIT Family Medicine; ATTEND Family Medicine
PROC: 3E0F7GC Introduction of Other Therapeutic Substance into Respiratory Tract, Via Natural or Artificial Opening (ICD-10-PCS; principal; 2017-03-23)
DX: I16.0 Hypertensive urgency (principal); N13.2 Hydronephrosis with renal and ureteral calculous obstruction; I48.91 Unspecified atrial fibrillation; R07.89 Other chest pain; I10 Essential (primary) hypertension; R11.0 Nausea; Z79.01 Long term (current) use of anticoagulants; Z79.82 Long term (current) use of aspirin; M79.7 Fibromyalgia; Z85.828 Personal history of other malignant neoplasm of skin; G89.29 Other chronic pain; Z90.710 Acquired absence of both cervix and uterus
CPT/HCPCS: 71010; 74000; 74177; 76775; 78452; 80048; 80053; 81001; 82550; 83690; 83735; 84484; 85025; 85610; 85730; 87086; 93005; 93017; 96374; 96376; A9502; G0378; J0360; J2270; J2785; Q9963; Q9967